=== PATIENT | male | born 1975 | race Two or more races ===

== ENCOUNTER 2021-02-27 19:49 | Inpatient (IN) | payer OTHER ==
[~2021-02-27] VITALS: Ht 185.4 cm; Wt 135.7 kg
[2021-02-27] MEDS ORDERED: SODIUM CHLORIDE FLUSH 10ML SYR IVF ONE (20:30)
[2021-02-27] MEDS ORDERED: PLEASE ENTER ALLERGIES MC SCH (20:30)
[2021-02-27] MEDS ORDERED: LORazepam 2 MG/ML, 1ML IVPush PRN (20:30)
[2021-02-27] MEDS ORDERED: MAGNESIUM SULFATE 1 GM, THIAMINE 100 MG, FOLIC ACID 1 MG, MVI ADULT 10 ML in SODIUM CHL... IV ONE (20:30)
--- NOTE | 2021-02-27 20:42 | NUR ---
pt arrived to ER via [facility] from [facility], pt here for abdominal distention without pain upon palpation, pt is jaundiced and has been having SOB for a week now, pt has dysuria, and +3 edema bilateral lower extremeties, pt a/ox4, all needs in reach, call light in reach, NAD
[2021-02-27] MEDS ORDERED: LORazepam 2 MG/ML, 1ML ONE (20:47)
[2021-02-27 21:02] LABS: BASOPHILS % (AUTO) 2 % (0-1); EOSINOPHILS % (AUTO) 0 % (1-7); LYMPHOCYTES % (AUTO) 3 % (22-44); MEAN CORPUSCULAR HEMOGLOBIN 35.4 pg (27.5-34.5); MEAN CORPUSCULAR HGB CONC 34.8 g/dL (33.2-36.2); MEAN PLATELET VOLUME 9.1 fL (7.4-10.4); MONOCYTES % (AUTO) 7 % (2-9); NEUTROPHILS % (AUTO) 89 % (42-75); PLATELET COUNT 203 x10^3/uL (130-400); RED CELL DISTRIBUTION WIDTH 15.9 % (9.4-14.8)
[2021-02-27 21:11] LABS: ALBUMIN 1.9 g/dL (3.4-5.0); ANION GAP 17 mmol/L (5-15); CALCIUM 7.2 mg/dL (8.5-10.1); CHLORIDE 84 mmol/L (98-107)
[2021-02-27 21:23] LABS: ALANINE AMINOTRANSFERASE 47 U/L (12-78); ALKALINE PHOSPHATASE 292 U/L (45-117); TROPONIN I < 0.015 ng/mL (0.000-0.045)
[2021-02-27 21:26] LABS: CREATININE 7.64 mg/dL (0.7-1.3); TOTAL PROTEIN 6.2 g/dL (6.4-8.2)
[2021-02-27 21:27] LABS: BILIRUBIN,TOTAL 26.8 mg/dL (0.2-1.0)
[2021-02-27] MEDS ORDERED: SODIUM CHLORIDE 0.9% 1,000 ML IV ONE (22:00)
[2021-02-27] MEDS ORDERED: ONDANSETRON 2MG/ML, 2ML IVPush PRN ×2 (22:00→23:00)
[2021-02-27] MEDS ORDERED: HYDR12.517 PO (22:26)
[2021-02-27] MEDS ORDERED: LISI-170 PO (22:26)
[2021-02-27] MEDS ORDERED: GUAIFENESIN/DM 200-20MG, 10ML UDC PO PRN (23:00)
[2021-02-27] MEDS ORDERED: CHLORDIAZEPOXIDE 10 MG CAPSULE PO PRN (23:00)
[2021-02-27] MEDS ORDERED: TEMAZEPAM 15 MG CAPSULE PO PRN (23:00)
[2021-02-27] MEDS ORDERED: OXYcodone IR 5MG TABLET PO PRN (23:00)
[2021-02-27] MEDS ORDERED: FOLIC ACID 5 MG/ML IM ONE (23:00)
[2021-02-27] MEDS ORDERED: DOCUSATE 100 MG CAPSULE PO PRN (23:00)
[2021-02-27] MEDS ORDERED: LORazepam 2 MG/ML, 1ML IV PRN (23:00)
[2021-02-27] MEDS ORDERED: hydrALAzine 20 MG/ML, 1ML IVPush PRN (23:00)
[2021-02-27] MEDS ORDERED: CHLORDIAZEPOXIDE 25 MG CAPSULE PO PRN ×3 (23:00)
[2021-02-27] MEDS ORDERED: THIAMINE 200 MG in DEXTROSE 5% 50 ML IVPB ONE (23:00)
[2021-02-27] MEDS ORDERED: morphine SULFATE 10 MG/ML, 1ML IVPush PRN (23:00)
[2021-02-27 23:34] VITALS: BP 88/52
[2021-02-28 00:09] LABS: INTERNATIONAL NORMALIZED RATIO 1.5 (0.93-1.1); PROTHROMBIN TIME 15.9 Seconds (9.6-11.5)
[2021-02-28] MEDS: DIAZEPAM 10 MG TABLET PO SCH ×4 (00:24→16:14)
[2021-02-28 01:05] VITALS: BP 89/52
[2021-02-28 05:26] LABS: ANION GAP 18 mmol/L (5-15); BASOPHILS % (AUTO) 1 % (0-1); CALCIUM 7.1 mg/dL (8.5-10.1); CHLORIDE 85 mmol/L (98-107); EOSINOPHILS % (AUTO) 1 % (1-7); LYMPHOCYTES % (AUTO) 5 % (22-44); MEAN CORPUSCULAR HEMOGLOBIN 35.7 pg (27.5-34.5); MEAN PLATELET VOLUME 9.2 fL (7.4-10.4); MONOCYTES % (AUTO) 7 % (2-9); NEUTROPHILS % (AUTO) 87 % (42-75); PLATELET COUNT 169 x10^3/uL (130-400); RED BLOOD COUNT 2.98 x10^6/uL (4.38-5.82); RED CELL DISTRIBUTION WIDTH 15.6 % (9.4-14.8)
[2021-02-28 05:30] LABS: CREATININE 7.91 mg/dL (0.7-1.3)
[2021-02-28 07:28] VITALS: BP 89/48
[2021-02-28] MEDS ORDERED: SODIUM CHLORIDE 0.9% 1,000 ML IV SCH (08:00)
[2021-02-28] MEDS ORDERED: SODIUM BICARBONATE 650 MG TABLET PO SCH (09:30)
[2021-02-28] MEDS ORDERED: SODIUM CHLORIDE 0.9% 1,000ML IV ONE (09:30)
[2021-02-28 13:01] VITALS: BP 94/58
[2021-02-28] MEDS ORDERED: OCTREOTIDE 500 MCG in SODIUM CHLORIDE 0.9% 99 ML IV SCH (13:30)
[2021-02-28] MEDS: ALBUMIN HUMAN 25% 100 ML IV SCH ×2 (15:22→21:15)
[2021-02-28 15:32] LABS: CLOSTRIDIUM DIFFICILE TOXIN NEGATIVE (Negative)
[2021-02-28 15:36] LABS: CLOSTRIDIUM DIFFICILE ANTIGEN POSITIVE
[2021-02-28] MEDS: MULTIVITAMINS/MINERALS TABLET PO SCH ×2 (16:13→21:15)
[2021-02-28] MEDS: prednisOLONE 15 MG/5 ML ORAL SOLN PO SCH (16:14)
[2021-02-28 19:48] VITALS: BP 101/64
[2021-02-28] MEDS: DIAZEPAM 5 MG TABLET PO SCH (22:13)
[2021-03-01 02:14] VITALS: BP 97/54
[2021-03-01 02:25] VITALS: BP 92/52
[2021-03-01] MEDS: ALBUMIN HUMAN 25% 100 ML IV SCH ×2 (02:59→08:37)
[2021-03-01] MEDS: DIAZEPAM 5 MG TABLET PO SCH ×4 (04:18→22:53)
[2021-03-01 05:17] LABS: INTERNATIONAL NORMALIZED RATIO 1.75 (0.93-1.1); PROTHROMBIN TIME 18.5 Seconds (9.6-11.5)
[2021-03-01 05:22] LABS: BASOPHILS % (AUTO) 0 % (0-1); EOSINOPHILS % (AUTO) 0 % (1-7); LYMPHOCYTES % (AUTO) 3 % (22-44); MEAN CORPUSCULAR HEMOGLOBIN 36.4 pg (27.5-34.5); MEAN CORPUSCULAR HGB CONC 36.1 g/dL (33.2-36.2); MEAN PLATELET VOLUME 8.9 fL (7.4-10.4); MONOCYTES % (AUTO) 4 % (2-9); NEUTROPHILS % (AUTO) 93 % (42-75); PLATELET COUNT 144 x10^3/uL (130-400); RED BLOOD COUNT 2.65 x10^6/uL (4.38-5.82); RED CELL DISTRIBUTION WIDTH 15.5 % (9.4-14.8)
[2021-03-01 05:23] LABS: CHLORIDE 88 mmol/L (98-107)
[2021-03-01 05:53] LABS: % IRON SATURATION 72 % (20-55); ALBUMIN 2.6 g/dL (3.4-5.0); ANION GAP 18 mmol/L (5-15); CALCIUM 7.5 mg/dL (8.5-10.1); IRON LEVEL 67 mcg/dL (65-175); TOTAL IRON BINDING CAPACITY 93 mcg/dL (250-450)
[2021-03-01 05:54] LABS: CREATININE 6.89 mg/dL (0.7-1.3)
[2021-03-01 06:01] LABS: ANISOCYTOSIS 1+; TARGET CELLS 1+
[2021-03-01 06:02] LABS: <PLATELET ESTIMATE> ADEQUATE; <PLT MORPHOLOGY> NORMAL PLT MORPH
[2021-03-01 08:25] VITALS: BP 109/65
[2021-03-01] MEDS: MULTIVITAMINS/MINERALS TABLET PO SCH ×2 (08:37→21:37)
[2021-03-01] MEDS: prednisOLONE 15 MG/5 ML ORAL SOLN PO SCH (08:37)
[2021-03-01] MEDS: CHOLECALCIFEROL 5,000u TAB PO SCH (10:30)
[2021-03-01 11:32] LABS: MICROSCOPIC INDICATED
[2021-03-01 12:45] VITALS: BP 105/68
[2021-03-01] MEDS: METRONIDAZOLE PMX 500MG/100ML 100 ML IV SCH (16:32)
[2021-03-01 20:23] VITALS: BP 105/71
[2021-03-02] MEDS: METRONIDAZOLE PMX 500MG/100ML 100 ML IV SCH ×3 (00:07→17:11)
[2021-03-02 03:55] VITALS: BP 109/69
[2021-03-02] MEDS: DIAZEPAM 5 MG TABLET PO SCH ×3 (04:03→17:10)
[2021-03-02 06:14] LABS: BASOPHILS % (AUTO) 0 % (0-1); EOSINOPHILS % (AUTO) 0 % (1-7); LYMPHOCYTES % (AUTO) 3 % (22-44); MEAN CORPUSCULAR HEMOGLOBIN 35.5 pg (27.5-34.5); MEAN CORPUSCULAR HGB CONC 35.1 g/dL (33.2-36.2); MEAN PLATELET VOLUME 9.1 fL (7.4-10.4); MONOCYTES % (AUTO) 9 % (2-9); NEUTROPHILS % (AUTO) 87 % (42-75); PLATELET COUNT 160 x10^3/uL (130-400); RED BLOOD COUNT 2.75 x10^6/uL (4.38-5.82); RED CELL DISTRIBUTION WIDTH 15.6 % (9.4-14.8)
[2021-03-02 06:20] LABS: ALANINE AMINOTRANSFERASE 53 U/L (12-78); ALBUMIN 2.6 g/dL (3.4-5.0); ANION GAP 13 mmol/L (5-15); CALCIUM 7.8 mg/dL (8.5-10.1); CHLORIDE 89 mmol/L (98-107); INTERNATIONAL NORMALIZED RATIO 1.78 (0.93-1.1); PROTHROMBIN TIME 18.8 Seconds (9.6-11.5)
[2021-03-02 06:23] LABS: CREATININE 6.03 mg/dL (0.7-1.3)
[2021-03-02 06:32] LABS: ALKALINE PHOSPHATASE 244 U/L (45-117)
[2021-03-02 06:33] LABS: TOTAL PROTEIN 5.9 g/dL (6.4-8.2)
[2021-03-02 06:35] LABS: BILIRUBIN,TOTAL 31.4 mg/dL (0.2-1.0)
[2021-03-02 07:22] VITALS: BP 94/60
[2021-03-02] MEDS: CHOLECALCIFEROL 5,000u TAB PO SCH (08:45)
[2021-03-02] MEDS: MULTIVITAMINS/MINERALS TABLET PO SCH ×2 (08:45→22:57)
[2021-03-02] MEDS: prednisOLONE 15 MG/5 ML ORAL SOLN PO SCH (08:45)
[2021-03-02 14:00] VITALS: BP 101/66
[2021-03-02 20:15] VITALS: BP 95/60
[2021-03-03] MEDS: METRONIDAZOLE PMX 500MG/100ML 100 ML IV SCH ×3 (00:43→17:08)
[2021-03-03 01:03] VITALS: BP 95/61
[2021-03-03 06:10] LABS: MEAN CORPUSCULAR HEMOGLOBIN 35.1 pg (27.5-34.5); MEAN CORPUSCULAR HGB CONC 34.9 g/dL (33.2-36.2); MEAN PLATELET VOLUME 9.2 fL (7.4-10.4); PLATELET COUNT 141 x10^3/uL (130-400); RED CELL DISTRIBUTION WIDTH 15.6 % (9.4-14.8)
[2021-03-03 06:16] LABS: ALANINE AMINOTRANSFERASE 52 U/L (12-78); ALBUMIN 2.1 g/dL (3.4-5.0); ANION GAP 11 mmol/L (5-15); CALCIUM 7.6 mg/dL (8.5-10.1); CHLORIDE 96 mmol/L (98-107)
[2021-03-03 06:27] LABS: ALKALINE PHOSPHATASE 219 U/L (45-117)
[2021-03-03 06:30] LABS: CREATININE 5.09 mg/dL (0.7-1.3); TOTAL PROTEIN 5.1 g/dL (6.4-8.2)
[2021-03-03 06:33] LABS: BILIRUBIN,TOTAL 27.4 mg/dL (0.2-1.0)
[2021-03-03 07:05] LABS: ANISOCYTOSIS 1+; BAND#(MANUAL) 0.13 x10^3/uL; BANDS%(MANUAL) 1 % (0-7); LYMPH#(MANUAL) 0.39 x10^3/uL (1-3.4); LYMPHS% (MANUAL) 3 % (22-44); METAMYELOCYTES# (MANUAL) 0.13 x10^3/uL (0-0); METAMYELOCYTES% (MANUAL) 1 % (0-1); MONOS#(MANUAL) 0.79 x10^3/uL (0.3-2.7); MONOS% (MANUAL) 6 % (2-9); PMNS WITH VACUOLES 1+; SEG#(MANUAL) 11.66 x10^3/uL (1.8-6.8); SEGS% (MANUAL) 89 % (42-75); TARGET CELLS 1+
[2021-03-03 07:06] LABS: <PLATELET ESTIMATE> DECREASED; <PLT MORPHOLOGY> NORMAL PLT MORPH
[2021-03-03 07:55] VITALS: BP 100/63
[2021-03-03] MEDS: prednisOLONE 15 MG/5 ML ORAL SOLN PO SCH (08:52)
[2021-03-03] MEDS: MULTIVITAMINS/MINERALS TABLET PO SCH ×2 (08:52→21:28)
[2021-03-03] MEDS: CHOLECALCIFEROL 5,000u TAB PO SCH (08:52)
[2021-03-03 12:07] VITALS: BP 81/44
[2021-03-03] MEDS: DIAZEPAM 5 MG TABLET PO PRN (15:12)
[2021-03-03 15:49] LABS: INTERNATIONAL NORMALIZED RATIO 2.09 (0.93-1.1)
[2021-03-03 17:15] VITALS: BP 95/61
[2021-03-03 19:24] VITALS: BP 97/60
[2021-03-03] MEDS ORDERED: TRAZODONE 50MG TABLET PO PRN (21:00)
[2021-03-04] VITALS: BP 93/57
[2021-03-04] MEDS: METRONIDAZOLE PMX 500MG/100ML 100 ML IV SCH ×2 (01:29→09:00)
[2021-03-04] MEDS: DIAZEPAM 5 MG TABLET PO PRN (01:34)
[2021-03-04 05:55] LABS: MEAN CORPUSCULAR HEMOGLOBIN 35.4 pg (27.5-34.5); MEAN CORPUSCULAR HGB CONC 35.3 g/dL (33.2-36.2); MEAN PLATELET VOLUME 9.3 fL (7.4-10.4); PLATELET COUNT 157 x10^3/uL (130-400); RED BLOOD COUNT 2.62 x10^6/uL (4.38-5.82); RED CELL DISTRIBUTION WIDTH 15.4 % (9.4-14.8)
[2021-03-04 05:57] LABS: INTERNATIONAL NORMALIZED RATIO 1.91 (0.93-1.1); PROTHROMBIN TIME 20.2 Seconds (9.6-11.5)
[2021-03-04 06:01] LABS: ANION GAP 15 mmol/L (5-15); CALCIUM 7.5 mg/dL (8.5-10.1); CHLORIDE 92 mmol/L (98-107)
[2021-03-04 06:14] LABS: ALANINE AMINOTRANSFERASE 56 U/L (12-78); ALKALINE PHOSPHATASE 257 U/L (45-117)
[2021-03-04 06:16] LABS: CREATININE 6.71 mg/dL (0.7-1.3)
[2021-03-04 06:17] LABS: TOTAL PROTEIN 5.1 g/dL (6.4-8.2)
[2021-03-04 06:18] LABS: BILIRUBIN,TOTAL 27.8 mg/dL (0.2-1.0)
[2021-03-04 06:26] LABS: LYMPH#(MANUAL) 0.66 x10^3/uL (1-3.4); LYMPHS% (MANUAL) 4 % (22-44); METAMYELOCYTES% (MANUAL) 3 % (0-1); MONOS#(MANUAL) 0.99 x10^3/uL (0.3-2.7); MONOS% (MANUAL) 6 % (2-9); MYELOCYTES# (MANUAL) 0.17 x10^3/uL (0-0); MYELOCYTES% (MANUAL) 1 % (0-0); SEG#(MANUAL) 14.19 x10^3/uL (1.8-6.8); SEGS% (MANUAL) 86 % (42-75)
[2021-03-04 06:27] LABS: <PLATELET ESTIMATE> ADEQUATE; <PLT MORPHOLOGY> NORMAL PLT MORPH; ANISOCYTOSIS 1+; HYPOCHROMIA 1+; TARGET CELLS 1+
[2021-03-04 08:55] VITALS: BP 135/69
[2021-03-04] MEDS: MULTIVITAMINS/MINERALS TABLET PO SCH (12:19)
[2021-03-04] MEDS: CHOLECALCIFEROL 5,000u TAB PO SCH (12:20)
[2021-03-04] MEDS ORDERED: OXYC5TAB98 PO (12:24)
[2021-03-04] MEDS ORDERED: VANC125C3 PO (12:24)
== END 2021-03-04 13:44 | disposition home or self-care (01) | DRG 432 ==
LOC: ED 20:36 → EDIP 22:17 → 4WST 22:41
PROVIDERS: ADMIT Internal Medicine; ATTEND Internal Medicine
PROC: 5A1D70Z Performance of Urinary Filtration, Intermittent, Less than 6 Hours Per Day (ICD-10-PCS; 2021-02-28)
PROC: 02HV33Z Insertion of Infusion Device into Superior Vena Cava, Percutaneous Approach (ICD-10-PCS; principal; 2021-03-01)
PROC: B548ZZA Ultrasonography of Superior Vena Cava, Guidance (ICD-10-PCS; 2021-03-01)
PROC: 5A1D70Z Performance of Urinary Filtration, Intermittent, Less than 6 Hours Per Day (ICD-10-PCS; 2021-03-01)
PROC: 5A1D70Z Performance of Urinary Filtration, Intermittent, Less than 6 Hours Per Day (ICD-10-PCS; 2021-03-02)
DX: K70.40 Alcoholic hepatic failure without coma (principal); K76.7 Hepatorenal syndrome; N17.0 Acute kidney failure with tubular necrosis; A04.72 Enterocolitis due to Clostridium difficile, not specified as recurrent; E87.1 Hypo-osmolality and hyponatremia; E87.2 Acidosis; F10.239 Alcohol dependence with withdrawal, unspecified; D53.9 Nutritional anemia, unspecified; E66.9 Obesity, unspecified; E83.51 Hypocalcemia; E86.0 Dehydration; E87.70 Fluid overload, unspecified; E87.8 Other disorders of electrolyte and fluid balance, not elsewhere classified; I12.9 Hypertensive chronic kidney disease with stage 1 through stage 4 chronic kidney disease, or unspecified chronic kidney disease; K70.10 Alcoholic hepatitis without ascites; D72.829 Elevated white blood cell count, unspecified; K70.30 Alcoholic cirrhosis of liver without ascites; K76.0 Fatty (change of) liver, not elsewhere classified; I95.9 Hypotension, unspecified; K80.20 Calculus of gallbladder without cholecystitis without obstruction; N18.9 Chronic kidney disease, unspecified; Z20.822 Contact with and (suspected) exposure to COVID-19; Z51.5 Encounter for palliative care; Z79.01 Long term (current) use of anticoagulants; Z91.15 Patient's noncompliance with renal dialysis; Z79.899 Other long term (current) drug therapy; Z79.891 Long term (current) use of opiate analgesic
CPT/HCPCS: 36415; 36556; 76700; 76770; 76937; 80048; 80053; 80069; 81001; 82103; 82105; 82306; 82390; 82570; 82607; 82728; 82784; 82962; 83516; 83540; 83550; 83735; 83880; 83970; 84100; 84300; 84443; 84484; 84540; 84550; 85025; 85610; 86038; 86704; 86706; 86803; 87046; 87086; 87324; 87340; 87427; 87493; 90935; 93005; 96374; 99291; G0378; J3411; J3475; P9047; C1751; J1642; J2060; J7030; J7510